=== PATIENT | male | born 1950 | race African-American/Black ===

== ENCOUNTER → 2016-09-20 | Day surgery (SDC) | payer OTHER, BC ==
[~2016-09-20] MED LIST: ZESTRIL5 MG PO
--- NOTE | ~2016-09-20 | OR ---
Unit #: [id number] #: [id number] Patient: MICTH MARQUEZ [id number] [facility]. [id number] [facility]. [place], [place] [address] [id number] O MR#: [id number] NAME: MITCH MARQUEZ ROOM: Date of Procedure: 09/20/2016 Admission Date: 09/20/2016 Surgeon: Harjinder Dela Cruz Jr., M.D. : 1950 Attending Physician: Harjinder Dela Cruz Jr., M.D. Primary Care Physician: Valerio Strong M.D. OPERATIVE REPORT INDICATIONS FOR PROCEDURE The patient is a 66-year-old black male, who has had no previous colonoscopy, presents desiring screening colonoscopy. He has had some intermittent problems with hemorrhoids and he wants to these evaluated at the same time. PREOPERATIVE DIAGNOSIS Desired screening colonoscopy, rule out pathology. POSTOPERATIVE DIAGNOSIS Large internal dilated hemorrhoids without thrombosis and pandiverticulosis. ANESTHESIA MAC anesthesia. PROCEDURE PERFORMED Flexible colonoscopy to the cecum. DESCRIPTION OF PROCEDURE The patient was positioned in Baptiste position with left side down and after being given MAC anesthesia, digital rectal examination was performed, which revealed no palpable masses or tenderness. No blood or stool in the rectal ampulla. Prostate was normal by palpation. The Olympus colonoscope was advanced up into the anal canal and retroflexed down to the area of the anorectal region. There were multiple large dilated internal hemorrhoids, which were not bleeding and nonthrombosed. No evidence of any fissures. The scope was then straightened and advanced up the rectosigmoid, in the sigmoid and descending colon areas, where there were multiple diverticula without evidence of diverticulitis. There was some slight tortuosity of the sigmoid colon. The scope was then advanced around the splenic flexure and the transverse colon, around hepatic flexure and ascending colon, down in the area of the cecum. The light from the tip of the scope could be seen transilluminating through the right lower quadrant abdominal wall area. Multiple attempts in advancing the scope up the distal ileum were unsuccessful. There were numerous diverticula in the right colon. The scope was slowly removed. There were no tumors, polyps, cancer, or AVMs. No evidence of any colitis or acute diverticulitis. The caliber of the colon appeared normal throughout. The scope was removed. The patient tolerated the procedure well and discharged in satisfactory condition. Unit #: [id number] #: [id number] Patient: MITCH MARQUEZ Dictated by... Harjinder Dela Cruz Jr., M.D. JMB/gregor TD: 09/20/2016 23:21 JOB #: [id number] OPERATIVE REPORT Page 1 of 1 X Harjinder Dela Cruz MD X PROCEDURE OPERATIVE NOTE
== END | disposition home or self-care (01) ==
LOC: COPS 05:42
DX: Z12.11 Encounter for screening for malignant neoplasm of colon (principal); K64.8 Other hemorrhoids; K57.30 Diverticulosis of large intestine without perforation or abscess without bleeding; I10 Essential (primary) hypertension; N40.0 Benign prostatic hyperplasia without lower urinary tract symptoms
CPT/HCPCS: J2250